=== PATIENT | female | born 2000 | race Asian ===

== ENCOUNTER 2022-11-10 21:10 | Emergency (ER) | payer OTHER ==
[2022-11-10 21:29] VITALS: BP 115/73; PULSE 110; RESP 18; TEMP 98; BMI 19.8
[2022-11-10] MEDS ORDERED: IBUPROFEN 600 MG TABLET (FP) PO ONE ×2 (22:46→22:57)
== END 2022-11-10 23:02 | disposition home or self-care (01) ==
LOC: FER 21:10
DX: S00.11XA Contusion of right eyelid and periocular area, initial encounter (principal); Y04.8XXA Assault by other bodily force, initial encounter; Y07.410 Brother, perpetrator of maltreatment and neglect
CPT/HCPCS: 70450-TC; 70486-TC; 72125-TC; 99285-25